=== PATIENT | female | born 2000 | race Hispanic/Latino ===

== ENCOUNTER 2021-12-10 00:01 | Inpatient (IN) | payer OTHER ==
[~2021-12-10] VITALS: Ht 157.5 cm; Wt 121.1 kg
--- NOTE | 2021-12-10 08:42 | PR ---
[facility] [address] [facility] [place], [place] [address] Signed Progress Notes IP Datetime Report Generated by CPN: 12/10/2021 08:42 PROGRESS NOTES: [id number] Impression: Normal Progression of Labor Procedures: Artificial ROM Plan: Continue Present Management; Anticipate Vaginal Delivery VITAL SIGNS: [id number] Vital Signs: Reviewed; Within Normal Limits EXAM: [id number] Dilatation: 2.0 Effacement: 75 Station: -3 Contractions: rare MEMBRANES: [id number] Membranes Status: Ruptured Comments: Doing well, no complaints. Will continue to follow FETUS A: [id number] FHR Baseline: 135 Variability: Moderate 6-25bpm Accelerations: 15X15 FETUS B: [id number] Signing Physician: Reza Garcia MD Copies: ~ *Electronically Signed* 12/10/21 0842 REZA GARCIA MD PATIENT NAME: SARAHY VILLASENOR PROGRESS NOTE DATE OF : 99 PHYSICIAN: REZA GARCIA MD RPT #: [id number] REPORT IS CONFIDENTIAL AND NOT TO BE RELEASED WITHOUT AUTHORIZATION
--- NOTE | 2021-12-10 13:22 | PR ---
[facility] [address] [facility] [place], [place] [address] Signed Progress Notes IP Datetime Report Generated by CPN: 12/10/2021 13:22 PROGRESS NOTES: [id number] Impression: Normal Progression of Labor Other Impressions: Slow Progress Procedures: Artificial ROM Plan: Augmentation VITAL SIGNS: [id number] Vital Signs: Reviewed; Within Normal Limits EXAM: [id number] Dilatation: 3.0 Effacement: 80 Station: -2 Contractions: rare MEMBRANES: [id number] Membranes Status: Ruptured Comments: No change in past 2 hours, contractions look mild and irregular. WIll start Pitocin augmentation. FETUS A: [id number] FHR Baseline: 135 Variability: Moderate 6-25bpm Accelerations: 15X15 FETUS B: [id number] Signing Physician: Jaleel Garcia MD Copies: ~ *Electronically Signed* 12/10/21 1322 JALEEL GARCIA MD PATIENT NAME: SARAHY VILLASENOR LOIS PROGRESS NOTE DATE OF : 99 PHYSICIAN: JALEEL GARCIA MD RPT #: [id number] REPORT IS CONFIDENTIAL AND NOT TO BE RELEASED WITHOUT AUTHORIZATION
--- NOTE | 2021-12-10 18:11 | PR ---
[facility] [facility] [address] [facility] [place], [place] [address] Signed Progress Notes IP Datetime Report Generated by CPN: 12/10/2021 18:11 PROGRESS NOTES: [id number] Impression: Normal Progression of Labor Other Impressions: Sslow progress Procedures: Intrauterine Pressure Catheter; Scalp Electrode Plan: Continue Present Management; Augmentation VITAL SIGNS: [id number] Vital Signs: Reviewed; Within Normal Limits EXAM: [id number] Dilatation: 4.0 Effacement: 80 Station: -2 Contractions: rare MEMBRANES: [id number] Membranes Status: Ruptured Comments: Comfortable with Epidural. Will continue adjusting Pitocin rate to get adequate contractions. FETUS A: [id number] FHR Baseline: 135 Variability: Moderate 6-25bpm Accelerations: 15X15 FETUS B: [id number] Signing Physician: Reza Garcia MD Copies: ~ *Electronically Signed* 12/10/211810 REZA GARCIA MD PATIENT NAME: SARAHY VILLASENOR PROGRESS NOTE DATE OF : 99 PHYSICIAN: REZA GARCIA MD RPT #: [id number] REPORT IS CONFIDENTIAL AND NOT TO BE RELEASED WITHOUT AUTHORIZATION
--- NOTE | 2021-12-10 21:14 | PR ---
[facility] [address] [facility] [place], [place] [address] Signed Progress Notes IP Datetime Report Generated by CPN: 12/10/2021 21:14 PROGRESS NOTES: [id number] Impression: Normal Progression of Labor Other Impressions: Sslow progress Procedures: Intrauterine Pressure Catheter; Scalp Electrode Plan: Continue Present Management VITAL SIGNS: [id number] Vital Signs: Reviewed; Within Normal Limits EXAM: [id number] Dilatation: 5.5 Effacement: 90 Station: -2 Contractions: rare MEMBRANES: [id number] Membranes Status: Ruptured Comments: Comfortable with Epidural, making better progress now, but increased caput. Will continue Piitocin and continue monitoring. FETUS A: [id number] FHR Baseline: 135 Variability: Moderate 6-25bpm Accelerations: 15X15 FETUS B: [id number] Signing Physician: Jaleel Garcia MD Copies: ~ *Electronically Signed* 12/10/212113 JALEEL GARCIA MD PATIENT NAME: EDYTA MARTINEZSARAHYCHELY ABREU PROGRESS NOTE DATE OF : 99 PHYSICIAN: JALEEL GARCIA MD RPT #: [id number] REPORT IS CONFIDENTIAL AND NOT TO BE RELEASED WITHOUT AUTHORIZATION
--- NOTE | 2021-12-10 23:03 | PR ---
[facility] [address] [facility] [place], [place] [address] Signed Progress Notes IP Datetime Report Generated by CPN: 12/10/2021 23:03 PROGRESS NOTES: [id number] Impression: Normal Progression of Labor Other Impressions: Sslow progress Procedures: Intrauterine Pressure Catheter; Scalp Electrode Plan: Continue Present Management VITAL SIGNS: [id number] Vital Signs: Reviewed; Within Normal Limits EXAM: [id number] Dilatation: 10.0 Effacement: 90 Station: 0 Contractions: rare MEMBRANES: [id number] Membranes Status: Ruptured Comments: Comfortable with Epidural. Will have patient start pushing. FETUS A: [id number] FHR Baseline: 135 Variability: Moderate 6-25bpm Accelerations: 15X15 FETUS B: [id number] Signing Physician: Reza Garcia MD Copies: ~ *Electronically Signed* 12/10/21 9598 REZA GARCIA MD PATIENT NAME: SARAHY VILLASENOR PROGRESS NOTE DATE OF : 99 PHYSICIAN: REZA GARCIA MD RPT #: [id number] REPORT IS CONFIDENTIAL AND NOT TO BE RELEASED WITHOUT AUTHORIZATION
--- NOTE | 2021-12-11 12:26 | PR ---
[facility] [address] [facility] [place], [place] [address] Signed PP Progress Notes Datetime Report Generated by CPN: 12/11/2021 12:26 SUBJECTIVE: [id number] Pain: Within Normal Limits Nausea/Vomiting: Denies Vital Signs: [id number] Vital Signs: Reviewed; Within Normal Limits Abdomen/Uterus: Normal Lochia: Normal Extremities: Normal IMPRESSION/PLAN/PROCEDURES: [id number] Impression: Normal Progression Plan: Continue Present Management Procedures: None Progress Notes: Doing well, without complaint. Tolerating food, up moving, and voiding without difficulty. Signing Physician: Jaleel Garcia MD Copies: ~ *Electronically Signed* 12/11/21 1226 JALEEL GARCIA MD PATIENT NAME: SARAHY VILLASENOR LOIS PROGRESS NOTE DATE OF : 99 PHYSICIAN: JALEEL GARCIA MD RPT #: [id number] REPORT IS CONFIDENTIAL AND NOT TO BE RELEASED WITHOUT AUTHORIZATION
--- NOTE | 2021-12-12 10:27 | PR ---
[facility] [address] [facility] [place] [address] Signed PP Progress Notes Datetime Report Generated by CPN: 12/12/2021 10:27 SUBJECTIVE: [id number] Pain: Within Normal Limits Nausea/Vomiting: Denies Vital Signs: [id number] Vital Signs: Reviewed; Within Normal Limits Notable Details: PP Hgb/Hct = 10.0/28.8 Abdomen/Uterus: Normal Lochia: Normal Extremities: Normal IMPRESSION/PLAN/PROCEDURES: [id number] Impression: Normal Progression Plan: Continue Present Management Procedures: None Progress Notes: Doing well, without complaint, ready to go home. Signing Physician: Reza Garcia MD Copies: ~ *Electronically Signed* 12/12/21 1027 REZA GARCIA MD PATIENT NAME: SARAHY VILLASENOR PROGRESS NOTE DATE OF : 99 PHYSICIAN: REZA GARCIA MD RPT #: [id number] REPORT IS CONFIDENTIAL AND NOT TO BE RELEASED WITHOUT AUTHORIZATION
== END 2021-12-12 13:40 | disposition home or self-care (01) | DRG 807 ==
LOC: FBC 00:01
PROVIDERS: ADMIT General Practice; ATTEND General Practice
PROC: 10E0XZZ Delivery of Products of Conception, External Approach (ICD-10-PCS; principal; 2021-12-10)
PROC: 0KQM0ZZ Repair Perineum Muscle, Open Approach (ICD-10-PCS; 2021-12-10)
PROC: 3E0P7VZ Introduction of Hormone into Female Reproductive, Via Natural or Artificial Opening (ICD-10-PCS; 2021-12-10)
PROC: 10907ZC Drainage of Amniotic Fluid, Therapeutic from Products of Conception, Via Natural or Artificial Opening (ICD-10-PCS; 2021-12-10)
PROC: 00HU33Z Insertion of Infusion Device into Spinal Canal, Percutaneous Approach (ICD-10-PCS; 2021-12-10)
PROC: 3E0R3BZ Introduction of Anesthetic Agent into Spinal Canal, Percutaneous Approach (ICD-10-PCS; 2021-12-10)
DX: O66.0 Obstructed labor due to shoulder dystocia (principal); Z37.0 Single live birth; O48.0 Post-term pregnancy; Z3A.40 40 weeks gestation of pregnancy; O70.1 Second degree perineal laceration during delivery; Z67.40 Type O blood, Rh positive; Z20.822 Contact with and (suspected) exposure to COVID-19
CPT/HCPCS: 36415; 85027; 86850; 86900; 86901; A9270; J2590; J2795; J3010; J7121

== ENCOUNTER 2022-05-22 13:15 | Emergency (ER) | payer OTHER ==
[~2022-05-22] VITALS: Ht 157.5 cm; Wt 110.4 kg
[2022-05-22] MEDS ORDERED: ONDANSETRON ODT8 MG PO (16:03)
== END 2022-05-22 16:38 | disposition home or self-care (01) ==
LOC: ED 13:15
DX: J10.1 Influenza due to other identified influenza virus with other respiratory manifestations (principal); Z20.822 Contact with and (suspected) exposure to COVID-19
CPT/HCPCS: 87502; 99283; A9270; U0003